=== PATIENT | female | born 1985 | race Hispanic/Latino ===

== ENCOUNTER 2016-07-03 16:10 | Emergency (ER) | payer OTHER ==
[~2016-07-03] VITALS: Ht 157.5 cm; Wt 82.6 kg
[~2016-07-03 16:10] MED LIST: ALBUTEROL0.09 MG/A1 INH; ARTIFICIAL TEAR15 M2 OS; DOXYCYCLINE100 M3 PO; MOTRIN 600 MG600 MG PO; PREDNISONE 20MG20 MG PO; ROBITUSSIN W/CO10 ML PO; TRAMADOL50 MG PO; ZITHROMAX Z-PA250 M1 PO
--- NOTE | 2016-07-03 17:43 | ED HEADACHE COMPLAINT ---
History of Present Illness General Chief Complaint: Headache Stated Complaint: HEADACHE Source: patient Exam Limitations: no limitations Vital Signs & Intake/Output Vital Signs & Intake/Output Vital Signs Date Time Temp Pulse Resp B/P Pulse O2 O2 Flow FiO2 Ox Delivery Rate 07/03 1857 97.0 75 16 96/60 98 Room Air 07/03 1617 97.8 73 18 110/75 96 Room Air Allergies Coded Allergies: NO KNOWN ALLERGIES (05/30/15) Triage Note: PT TO ER C/C LEFT SIDED HEADACHE X 3 WEEKS. DENIES NAUSEA OR PHOTOSENSIVITY. PT HAS BEEN ON NAPROXEN X 1 WEEK WITH NO RELIEF. Triage Nurses Notes Reviewed? 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 for the last 3 weeks, co severe intermittent headaches, L side, worse for the past 2 days. B posterior occipital region that radiates to the L front, blurry vision and photophobia at times, sensitivity of facial bones. seen by pcp last week for alvarez. tx with naprosyn without relief. alvarez is different from her previous headaches. no numbness, no weakness, no gait disturbance, no speech problems. no fever, no neck pain. no rhinorrhea. no uri sx. (ALDO CHAO) Reconcile Medications Butalb/Acetaminophen/Caffeine (Fioricet 50-300-40 MG Capsule) 50 MG-300 MG-40 MG CAPSULE 1 TAB PO Q6H PRN HEADACHE (JENY CHEN,CHELI) Past History Travel History Traveled to [place] past 21 day No Medical History Any Pertinent Medical History? see below for history Neurological: bells palsy Surgical History Surgical History: N Psychosocial History What is your primary language Ukrainian Tobacco Use: Never used Family History Hx Contributory? No (ALDO CHAO) Review of Systems Review of Systems Constitutional: Reports: see HPI. Eyes: Reports: no symptoms. Ears, Nose, Throat, Mouth: Reports: no symptoms. Respiratory: Reports: no symptoms. Cardiovascular: Reports: no symptoms. Gastrointestinal/Abdominal: Reports: no symptoms. Genitourinary: Reports: no symptoms. Musculoskeletal: Reports: no symptoms. Skin: Reports: no symptoms. Neurological/Psychological: Reports: see HPI. Hematologic/Endocrine: Reports: no symptoms. Endocrine: Reports: no symptoms. Immunologic/Allergic: Reports: no symptoms. All Other Systems: Reviewed and Negative (ALDO CHAO) Physical Exam Physical Exam General Appearance: well developed/nourished Cranial Nerves: normal hearing, normal speech, PERRL Comments: Well-developed well-nourished person in no acute distress HEENT: Normal EENT exam, extraocular motion intact, no nystagmus. Pupils equally round and reactive to light. Nose is atraumatic. External auditory canal and Tympanic membranes clear. Pharynx normal. No swelling or edema. Neck: Supple, no lymphadenopathy, normal range of motion without pain or tenderness Back: Nontender, no CVA tenderness. Full range of motion Cardiovascular: Regular rate and rhythms no murmurs, normal JVP Respiratory: Chest nontender. No respiratory distress. Breath sounds clear to auscultation bilaterally Abdomen: Soft, nontender nondistended, no appreciable organomegaly. Normal bowel sounds. No ascites Extremity: No edema, no calf tenderness to palpation, normal and equal pulses. Neuro: Alert oriented x3, motor sensory normal, cranial nerves II through XII grossly intact. Skin: No appreciable rash on exposed skin, skin is warm and dry. Psych: Mood and affect is normal, memory and judgment is normal. Core Measures Severe Sepsis Present: No Septic Shock Present: No (ALDO CHAO) Progress Differential Diagnosis: carotid dissection, cav sinus thromb, cluster ALVAREZ, encephalitis, IC mass/tumor, intracranial Hem., meningitis, migraine ALVAREZ, musculoskeletal pain, sinusitis, SSS thrombosis, subarach. Hem., tension ALVAREZ, temporal arteritis, TMJ syndrome, viral cephalgia Plan of Care: Orders Procedure Date/time Status CT HEAD WO IV CONTRAST 07/03 1749 Active Current Medications Sig/Corinna Start time Last Medication Dose Stop Time Status Admin Ketorolac 30 MG ONCE ONE 07/03 1800 AC Tromethamine 07/03 1801 (Toradol) Diagnostic Imaging: Viewed by Me: CT Scan. Discussed w/RAD: CT Scan. Radiology Impression: PATIENT: DANIA VELASQUEZ PRESENT AGE: 31 PATIENT ACCOUNT NO: [id number] : 85 LOCATION: [facility] ORDERING PHYSICIAN: ALDO KIMBROUGH SERVICE DATE: 07/03/16-1749 EXAM TYPE: CAT - CT HEAD WO IV CONTRAST EXAMINATION: CT HEAD WITHOUT CONTRAST CLINICAL INFORMATION: Headache. COMPARISON: Report from a prior CT head dated 04/26/2014. The images were not available at the time of the examination. TECHNIQUE: Contiguous axial imaging was performed from the skull base to vertex without intravenous administration of contrast. DLP: 815.35 mGy-cm FINDINGS: Examination is somewhat limited secondary to patient motion. There is no evidence of acute intracranial hemorrhage or territorial infarction. No abnormal mass effect or midline shift is seen. Martinez to white matter differentiation is well preserved. No extra-axial fluid collections are identified. The ventricles are normal in size. There is no abnormal attenuation within the brain parenchyma. The osseous structures and soft tissues are normal. The mastoid air cells and visualized portions of the paranasal sinuses are well aerated. IMPRESSION: No intracranial hemorrhage or mass effect. DICTATED BY: DOC CORBETT MD DATE/TIME DICTATED: 07/03/161824 FUNNEL COATER:PETROS Comments: Treated with Toradol, on reevaluation patient is not feeling much better. Her CT scan is unremarkable. Discussed that likely she has migraine headache, we'll try her on Fioricet as outpatient. She has no signs of meningismus, does not appear to be in significant distress, no neck pain or stiffness. No vomiting. She will follow-up with her primary care doctor this week if symptoms continue. (ALDO CHAO) Departure Departure Disposition: HOME OR SELF CARE Condition: Stable Clinical Impression Primary Impression: Migraine headache Qualifiers: Migraine type: unspecified Status migrainosus presence: without status migrainosus Intractability: not intractable Qualified Code: G43.909 - Migraine, unspecified, not intractable, without status migrainosus Referrals: ALYSHA LANDRY APRN (PCP/Family) Additional Instructions: take Fioricet as directed for your headaches Follow-up with your primary care doctor later this week if symptoms continue Departure Forms: Customer Survey General Discharge Information Prescriptions: Current Visit Scripts Butalb/Acetaminophen/Caffeine (Fioricet 50-300-40 MG Capsule) 1 TAB PO Q6H PRN HEADACHE #30 (ALDO CHAO) PA/GRAIN ORIGINATION SPECIALIST Co-Sign Statement Statement: ED Attending supervision documentation- [] I saw and evaluated the patient. I have also reviewed all the pertinent lab results and diagnostic results. I agree with the findings and the plan of care as documented in the PA's/GRAIN ORIGINATION SPECIALIST's documentation. x I have reviewed the ED Record and agree with the PA's/GRAIN ORIGINATION SPECIALIST's documentation. [] Additions or exceptions (if any) to the PAs/GRAIN ORIGINATION SPECIALIST's note and plan are summarized below: [] (JENY CHEN,CHELI)
--- NOTE | 2016-07-03 18:35 | CT SCAN REPORT ---
EXAMINATION: CT HEAD WITHOUT CONTRAST CLINICAL INFORMATION: Headache. COMPARISON: Report from a prior CT head dated 04/26/2014. The images were not available at the time of the examination. TECHNIQUE: Contiguous axial imaging was performed from the skull base to vertex without intravenous administration of contrast. DLP: 815.35 mGy-cm FINDINGS: Examination is somewhat limited secondary to patient motion. There is no evidence of acute intracranial hemorrhage or territorial infarction. No abnormal mass effect or midline shift is seen. Martinez to white matter differentiation is well preserved. No extra-axial fluid collections are identified. The ventricles are normal in size. There is no abnormal attenuation within the brain parenchyma. The osseous structures and soft tissues are normal. The mastoid air cells and visualized portions of the paranasal sinuses are well aerated. IMPRESSION: No intracranial hemorrhage or mass effect.
[2016-07-03] MEDS ORDERED: FIORICET 50-301 EACH PO (18:50)
[2016-07-03 18:57] VITALS: BP 96/60
== END 2016-07-03 19:00 ==
LOC: ERH 16:10
DX: G43.909 Migraine, unspecified, not intractable, without status migrainosus (principal)
CPT/HCPCS: 96372; J1885

== ENCOUNTER 2016-11-13 17:10 | Emergency (ER) | payer OTHER ==
[~2016-11-13] VITALS: Ht 154.9 cm; Wt 81.6 kg
[~2016-11-13 17:10] MED LIST changes: +FIORICET 50-301 EACH PO
--- NOTE | 2016-11-13 17:38 | ED GENERAL ADULT ---
History of Present Illness General Chief Complaint: Abdominal Pain/Flank Pain Stated Complaint: LOWER ABD PAIN Source: patient Exam Limitations: no limitations Vital Signs & Intake/Output Vital Signs & Intake/Output Vital Signs Date Time Temp Pulse Resp B/P B/P Pulse O2 O2 Flow FiO2 Mean Ox Delivery Rate 11/13 1851 97.9 76 18 101/64 98 Room Air 11/13 1714 98.6 79 18 113/72 98 Room Air Allergies Coded Allergies: NO KNOWN ALLERGIES (05/30/15) Reconcile Medications No Known Home Medications Triage Note: 31 YO FEMALE TO TRIAGE C/O LLQ PAIN X 4 DAYS. DENIES NVD. STATES SHE HAS INCREASING PRESSURE IN THE LLQ WHEN SHE FEELS THE URGE TO URINATE, DENIES BURNING/PAINFUL URINATION. LMP 10/24. Triage Nurses Notes Reviewed? yes : No Patient currently breastfeeds: No HPI: 31-year-old female with a history of left-sided ovarian cyst presenting with left lower quadrant pain 4 days. Reports a constant nonradiating dull pain to the left lower quadrant that has been unchanged. Has not tried anything for pain relief. Denies fevers, nausea, vomiting, diarrhea, dysuria, hematuria, vaginal discharge, vaginal bleeding. LMP October 24. (NAYELY COTTER PA-C) Past History Travel History Traveled to [place] past 21 day No Medical History Any Pertinent Medical History? none Neurological: bells palsy EENT: NONE Cardiovascular: NONE Respiratory: NONE Gastrointestinal: NONE Hepatic: NONE Renal: NONE Musculoskeletal: NONE Psychiatric: NONE Endocrine: NONE Blood Disorders: NONE Cancer(s): NONE NETWORK DESIGNER/Reproductive: NONE Surgical History Surgical History: N Psychosocial History What is your primary language Upper Sorbian Tobacco Use: Never used Family History Hx Contributory? No (NAYELY COTTER PA-C) Review of Systems Review of Systems Constitutional: Reports: no symptoms. Respiratory: Reports: no symptoms. Cardiovascular: Reports: no symptoms. GI: Reports: abdominal pain. Denies: bloating, constipation, diarrhea, nausea, bloody stool, vomiting. Genitourinary: Reports: no symptoms. Musculoskeletal: Reports: no symptoms. Neurological/Psychological: Reports: no symptoms. (NAYELY COTTER PA-C) Physical Exam Physical Exam General Appearance: well developed/nourished, no apparent distress, alert, awake , comfortable Head: atraumatic Respiratory: normal breath sounds, lungs clear Cardiovascular: regular rate/rhythm, normal peripheral pulses Gastrointestinal: normal bowel sounds, soft, non-tender Back: No CVAT Neurologic/Psych: awake, alert, oriented x 3, normal mood/affect Core Measures ACS in differential dx? No CVA/TIA Diagnosis: No Severe Sepsis Present: No Septic Shock Present: No (VAHE ALEX,NAYELY) Progress Differential Diagnoses I considered the following diagnoses in my evaluation of the patient: [Ovarian cyst versus ruptured ovarian cyst versus ectopic versus TOA versus PID versus diverticulitis versus colitis] Plan of Care: Orders Procedure Date/time Status URINE 11/13 1728 Complete URINALYSIS 11/13 1728 Complete COMPREHENSIVE METABOLIC PANEL 11/13 1728 Complete CBC WITHOUT DIFFERENTIAL 11/13 1728 Complete Current Medications Sig/Corinna Start time Last Medication Dose Stop Time Status Admin Ketorolac 30 MG ONCE ONE 11/13 181 UNVr 11/13 Tromethamine 11/13 1816 1833 (Toradol) Ketorolac 60 MG ONCE ONE 11/13 1800 CANr Tromethamine 11/13 1801 (Toradol) Laboratory Tests 11/13/16 1735: Urine Color YEL, Urine Clarity CLEAR, Urine pH 6.5, Ur Specific [place] 1.020, Urine Protein NEG, Urine Ketones NEG, Urine Nitrite NEG, Urine Bilirubin NEG, Urine Urobilinogen 0.2, Ur Leukocyte Esterase NEG, Ur Microscopic EXAM NOT REQUIRED, Urine Hemoglobin NEG, Urine Glucose NEG, Urine Test NEGATIVE 11/13/16 1730: Anion Gap 10, Estimated GFR > 60, BUN/Creatinine Ratio 22.9, Glucose 118 H, Calcium 9.1, Total Bilirubin 0.3, AST 46 H, ALT 82 H, Alkaline Phosphatase 80, Total Protein 6.6, Albumin 3.8, Globulin 2.8, Albumin/Globulin Ratio 1.4, CBC w Diff NO MAN DIFF REQ, RBC 3.99 L, MCV 86.2, MCH 29.7, RDW 12.2, MPV 8.9, Gran % 54.1, Lymphocytes % 36.1, Monocytes % 7.5, Eosinophils % 2.0, Basophils % 0.3, Absolute Granulocytes 3.7, Absolute Lymphocytes 2.4, Absolute Monocytes 0.5, Absolute Eosinophils 0.1, Absolute Basophils 0, PUBS MCHC 34.5 Patient with benign abdominal exam that was soft with no tenderness. Urine negative and urine shows no signs of infection. No indication for CT scan at this time. Suspect patient's pain is secondary to her known left ovarian cyst. Patient instructed to follow up with her NETWORK DESIGNER for further evaluation and to use Tylenol or ibuprofen as needed for pain. (NAYELY COTTER PA-C) Initial ED EKG: none (NAYELY COTTER PA-C) Departure Departure Disposition: HOME OR SELF CARE Condition: Stable Clinical Impression Primary Impression: LLQ pain Referrals: ALEYDA WHITE MD Additional Instructions: Use Tylenol or ibuprofen as needed for pain. Follow up with for further evaluation. Return to the ED for any normal worsening symptoms. Departure Forms: Customer Survey General Discharge Information Prescriptions: Current Visit Scripts No Known Home Medications (NAYELY COTTER PA-C) PA/HEALTHCARE NETWORK CONSULTANT Co-Sign Statement Statement: ED Attending supervision documentation- [] I saw and evaluated the patient. I have also reviewed all the pertinent lab results and diagnostic results. I agree with the findings and the plan of care as documented in the PA's/HEALTHCARE NETWORK CONSULTANT's documentation. [X] I have reviewed the ED Record and agree with the PA's/HEALTHCARE NETWORK CONSULTANT's documentation. [] Additions or exceptions (if any) to the PAs/HEALTHCARE NETWORK CONSULTANT's note and plan are summarized below: [] (YOUNG CHEN,YAZ Adams) Critical Care Note Critical Care Note Critical Care Time: non-applicable (NAYELY COTTER PA-C)
[2016-11-13 18:09] LABS: ABSOLUTE BASOPHIL COUNT 0 /CUMM (0.0-0.2); ABSOLUTE EOSINOPHIL COUNT 0.1 /CUMM (0.0-0.7); ABSOLUTE GRANULOCYTE CT 3.7 /CUMM (1.4-6.5); ABSOLUTE LYMPH COUNT 2.4 /CUMM (1.2-3.4); ABSOLUTE MONOCYTE COUNT 0.5 /CUMM (0.10-0.60); BASOPHIL % 0.3 % (0.0-2.0); GRANULOCYTE % 54.1 % (42.2-75.2); HEMATOCRIT 34.4 % (37-47); MEAN CORPUSCULAR HGB 29.7 PG (27.0-31.0); MEAN CORPUSCULAR HGB CONC 34.5 G/DL (33.0-37.0); MEAN CORPUSCULAR VOLUME 86.2 FL (81.0-99.0); MEAN PLATELET VOLUME 8.9 FL (7.4-10.4); PLATELET COUNT 205 /CUMM (130-400); RBC DISTRIBUTION WIDTH 12.2 % (11.5-14.5); RED BLOOD CELL CT 3.99 /CUMM (4.20-5.40); WHITE BLOOD CELL COUNT 6.8 /CUMM (4.8-10.8)
[2016-11-13 18:51] VITALS: BP 101/64
== END 2016-11-13 18:53 ==
LOC: ERH 17:10
PROVIDERS: Physician Assistant
DX: R10.32 Left lower quadrant pain (principal)
CPT/HCPCS: 81003; 81025; 96374; J1885